=== PATIENT | male | born 1975 | race Caucasian/White ===

== ENCOUNTER → 2022-02-19 12:59 | Outpatient (CLI) | payer OTHER, SELFPAY ==
--- NOTE | 2022-02-19 | DI.ECHO.S_ITS ---
[facility] +---------+ : : [address] : [address] : : : : [id number] : : : : Phone: [phone] +---------+ Echocardiogram Report + + :Name: KAREN BUI Study Date: 02/19/2022 Height: 70 in : :[facility] ReadingLocation: Weight: 185 lb : : Gender: Male BSA: 2.0 m2 : :: 1975 Age: 46 yrs BP: 117/84 mmHg: :Reason For Study: DYSPNEA : :Ordering Physician: ARIN, : :CANDACE Performed By: Miim Ramos : :Referring: CANDACE ST : + + Interpretation Summary 1) Normal left ventricular thickness and size with mildly reduced systolic function (EF 45-50%). 2) Normal right ventricular size and function. 3) No significant valvular abnormalities. 4) No prior Echo available for comparison. Procedure: A two-dimensional transthoracic echocardiogram with color flow and Doppler was performed. The study quality was technically adequate. There is no prior echocardiogram noted for this patient. The patient was in sinus bradycardia with heart rates between 50-65 bpm during the exam. Left Ventricle: The left ventricle is normal in size and wall thickness. The ejection fraction is estimated to be 45-50%. Left ventricular global longitudinal strain average is -18.2%. There is mild global hypokinesis of the left ventricle. Diastolic parameters suggest probable normal left ventricular diastolic function and normal filling pressures. Right Ventricle: The right ventricle is normal in size and function. Atria: The left atrial size is normal. Right atrial size is normal. There is no Doppler evidence for an interatrial shunt. Mitral Valve: The mitral valve is normal in structure and function. There is trace mitral regurgitation. Aortic Valve: The aortic valve is trileaflet. The aortic valve opens well. There is no aortic valve stenosis. No aortic regurgitation is present. Tricuspid Valve: The tricuspid valve is normal in structure and function. There is trace tricuspid regurgitation. Pulmonary artery pressures cannot be estimated because of the lack of a measurable TR jet velocity. Pulmonic Valve: The pulmonic valve leaflets are thin and pliable; valve motion is normal. There is mild pulmonic regurgitation. Great Vessels: The aortic root is normal size. The dimensions of the ascending aorta are normal. The IVC is of normal diameter and collapses greater than 50% with a sniff. This suggests a low right atrial pressure of 3 mm Hg. Pericardium/ Pleura There is no pericardial effusion. There is no pleural effusion. MMode/2D Measurements & Calculations LVIDd: 5.0 cm LVOT diam: 2.1 cm LVIDs: 3.7 cm Ao root diam: 3.3 cm FS: 25.4 % asc Aorta Diam: 3.4 cm IVSd: 0.79 cm Ao Arch Diam (Prox Trans): 3.2 cm LVPWd: 0.91 cm LV luevano. diameter/BSA (cm/m^2): 2.5 LV sys. diameter/BSA (cm/m^2): 1.9 LA A2 area: 20.9 cm2 RA long axis: 4.9 cm LA A4 area: 20.3 cm2 RA area: 16.3 cm2 LA length (vol): 5.4 cm RA vol: 46.4 ml LA vol: 66.7 ml RA : 23.0 ml/m2 LA vol index: 33.0 ml/m2 IVC diam: 1.7 cm RVD1 (basal): 3.8 cm RVD2 (mid): 3.2 cm TAPSE: 2.0 cm Doppler Measurements & Calculations Ao V2 max: 99.9 cm/sec LVOT Max Wilfredo: 72.6 cm/sec Ao V2 mean: 69.2 cm/sec LV V1 max P.1 mmHg Ao max P.0 mmHg LV V1 VTI: 15.4 cm Ao mean P.2 mmHg BINU(I,D): 2.6 cm2 Ao V2 VTI: 20.8 cm BINU(V,D): 2.6 cm2 sev ratio: 0.74 BINU indexed to BSA (cm^2/m^2): 1.3 MV E max wilfredo: 41.6 cm/sec PA V2 max: 76.4 cm/sec MV A max wilfredo: 37.0 cm/sec PA V2 mean: 51.9 cm/sec MV E/A: 1.1 PA mean P.2 mmHg Med Peak E' Wilfredo: 8.3 cm/sec PA pr(Accel): 8.8 mmHg E/E' med: 5.0 Lat Peak E' Wilfredo: 10.5 cm/sec E/E' lat: 4.0 E/e' average: 4.5 MV dec time: 0.26 sec SV(LVOT): 55.1 ml Reading Physician:03:52 PM
[2022-02-19 14:11] LABS: COVID19 -Nasal RAPID Negative (Negative)
--- NOTE | 2022-02-19 19:10 | DI.NM.S_ITS ---
DATE OF SERVICE: 02/19/2022 PROCEDURE: Exercise stress test. INDICATION: Palpitation. CARDIAC STRESS: The patient underwent exercise stress test under the supervision of an attending staff. The patient walked on Jacek protocol for 12 minutes and 19 seconds, achieved 101 percent of target heart rate with maximum heart rate 176 beats per minute. Baseline blood pressure 130/82 mmHg. Peak blood pressure 162/80 mmHg. Resting heart rate 70 beats per minute. Achieved 12.8 METs of workload and PIERO -9 percent. Baseline rhythm was sinus. During stress, no convincing ischemic changes seen. Rare PACs and PVCs noted. No chest pain. Had some shortness of breath. CONCLUSION: Exercise stress test is negative for inducible ischemia. Normal hemodynamic response. Good exercise capacity. Functional aerobic impairment -9 percent. No significant arrhythmias seen. No chest discomfort. Overall low- risk exercise stress test. Javan Olivas - CHU/debora/kristy doc#: [id number]/job#: [id number] dd: 02/19/2022 17:08:00 dt: 02/19/2022 18:49:00 DICTATING /COPIES TO: Salo Eller MD COPIES MNE: LAURA;
== END ==
PROVIDERS: Referring Provider Internal Medicine Cardiovascular Disease; Visit Provider Internal Medicine Cardiovascular Disease
DX: R06.00 Dyspnea, unspecified (principal); I30.9 Acute pericarditis, unspecified; R00.2 Palpitations; I37.1 Nonrheumatic pulmonary valve insufficiency; Z20.822 Contact with and (suspected) exposure to COVID-19
CPT/HCPCS: 87635; 93017; 93306

== ENCOUNTER → 2022-08-14 06:31 | Outpatient (CLI) | payer OTHER, SELFPAY ==
--- NOTE | 2022-08-14 | DI.ECHO.S_ITS ---
[facility]---------+ [facility] +---------+ : : [address] : [address] : : : : [id number] : : : : Phone: [phone] +---------+ Echocardiogram Report + + :Name: KAREN BUI Study Date: 08/14/2022 Height: 70 in : :[facility] ReadingLocation: Weight: 185 lb : : Gender: Male BSA: 2.0 m2 : :: 1975 Age: 46 yrs BP: 108/77 mmHg: :Reason For Study: CARDIOMYOPATHY : :Ordering Physician: ARIN, : :CANDACE Performed By: Mimi Ramos : :Referring: CANDACE ST : + + Interpretation Summary Limited Echo: 1) Normal left ventricular size and thickness with low normal systolic function (EF 50-55%). 2) The right ventricle is normal in size and function. 3) There is no pericardial effusion. 4) Compared to the Echo done 02/19/2022, LVEF has improved from 45-50% to 50- 55% on this study. Procedure: Images were not obtained from all of the standard acoustic windows due to the limited scope of the study. The study quality was technically good. Comparison is made with the echocardiogram of 02/19/2022. The patient was in sinus rhythm with heart rates between 57-61 bpm during the exam. Left Ventricle: The left ventricle is normal in size and wall thickness. The ejection fraction is estimated to be 50-55%. There are no focal wall motion abnormalities. Right Ventricle: The right ventricle is normal in size and function. Great Vessels: The IVC is of normal diameter and collapses greater than 50% with a sniff. This suggests a low right atrial pressure of 3 mm Hg. Pericardium/ Pleura There is no pericardial effusion. There is no pleural effusion. MMode/2D Measurements & Calculations LVIDd: 5.5 cm IVC diam: 1.4 cm LVIDs: 4.0 cm FS: 28.2 % IVSd: 0.69 cm LVPWd: 0.86 cm LV luevano. diameter/BSA (cm/m^2): 2.7 LV sys. diameter/BSA (cm/m^2): 2.0 RVD1 (basal): 3.2 cm TAPSE: 2.0 cm Reading Physician:07:11 PM
== END ==
PROVIDERS: Referring Provider Internal Medicine Cardiovascular Disease; Visit Provider Internal Medicine Cardiovascular Disease
DX: I42.9 Cardiomyopathy, unspecified (principal)
CPT/HCPCS: 93307